=== PATIENT | female | born 2000 | race Caucasian/White ===

== ENCOUNTER 2019-02-26 11:10 | Emergency (ER) | payer BC ==
[2019-02-26 11:15] VITALS: BP 110/76; PULSE 81; TEMP 98.8; BMI 31.4
--- NOTE | 2019-02-26 11:47 | PDOC ---
History of Present Illness - General Chief Complaint: Pain, Acute Stated Complaint: ABD PAIN History Source: Patient Exam Limitations: No Limitations - History of Present Illness Initial Comments: 02/26/19 11:40 19 yo F with no past medical history presents to the emergency department with epigastric pain since yesterday. Per the patient, she never experienced this pain before and was gradual in onset. She states she had 1x vomiting episode yesterday with 1 streak of red blood bright red. She denies worsening or relieving of pain with food, but states that the longer she goes without eating the worse it becomes. Has not used OTC medications. Denies the following: hx of gallstones, cholecystectomy, hx of gastritis, dysuria, hematuria, hx of pancreatitis, trauma, chest pain, SOB, fevers, and back pain. LMP was this month. No vaginal discharge or bleeding. Allergies: Cefazolin Shx: None Social: Denies tobacco, alcohol, and substance abuse. Past History - Past Medical History Allergies/Adverse Reactions: Allergies Allergy/AdvReac Type Severity Reaction Status Date / Time cefazolin Allergy Verified 02/26/19 11:11 Home Medications: Ambulatory Orders Sulfamethoxazole/Trimethoprim [Bactrim Ds -] 1 tab PO BID #10 tablet 02/26/19 COPD: No CHF: No - Suicide/Smoking/Psychosocial Hx Smoking History: Never smoked Hx Alcohol Use: No Drug/Substance Use Hx: No Review of Systems - Review of Systems Able to Perform ROS?: Yes Is the patient limited Tanzanian proficient: No Constitutional: No: Chills, Diaphoresis, Fever, Weakness HEENTM: No: Blurred Vision, Recent change in vision, Ear Pain, Nose Pain, Throat Pain, Mouth Pain Respiratory: No: Cough, Shortness of Breath, Hemoptysis Cardiac (ROS): No: Chest Pain, Lightheadedness, Palpitations, Syncope, Chest Tightness ABD/GI: Yes: Vomiting. No: Constipated, Diarrhea, Difficulty Swallowing, Nausea , Poor Appetite, Poor Fluid Intake, Rectal Bleeding, Tarry Stools : Yes: Frequency. No: Burning, Dysuria, Hematuria, Incontinence, Pain, Urgency Musculoskeletal: No: Back Pain, Joint Pain, Neck Pain Integumentary: No: Bruising, Erythema, Rash Neurological: No: Headache, Numbness, Tingling, Tremors, Dizziness Psychiatric: No: Change in Appetite Endocrine: No: Unexplained Weight Gain Hematologic/Lymphatic: No: Anemia *Physical Exam - Vital Signs Last Vital Signs Temp Pulse Resp BP Pulse Ox 98.8 F 81 16 110/76 100 02/26/19 11:11 02/26/19 11:11 02/26/19 11:11 02/26/19 11:11 02/26/19 11:11 - Physical Exam General Appearance: Yes: Nourished, Appropriately Dressed. No: Apparent Distress, Intoxicated HEENT: positive: EOMI, AMELIE, Normal Voice, Symmetrical, Pharynx Normal, Hearing Grossly Normal. negative: Pale Conjunctivae, Scleral Icterus (R), Scleral Icterus (L), Muffled/Hoarse voice, Pharyngeal Erythema, Tonsillar Exudate, Tonsillar Erythema, Nasal Congestion, Rhinorrhea, Sinus Tenderness, Excessive drooling Neck: positive: Trachea midline, Supple. negative: Tender, Lymphadenopathy (R) , Lymphadenopathy (L), Tender lateral, Tender midline Respiratory/Chest: positive: Lungs Clear, Normal Breath Sounds. negative: Chest Tender, Respiratory Distress, Accessory Muscle Use Cardiovascular: positive: Regular Rhythm, Regular Rate, S1, S2. negative: Systolic Murmur Gastrointestinal/Abdominal: positive: Normal Bowel Sounds, Tender (epigastric), Flat, Soft Lymphatic: negative: Adenopathy Musculoskeletal: positive: Normal Inspection. negative: CVA Tenderness, Vertebral Tenderness Extremity: positive: Normal Capillary Refill, Normal Inspection, Normal Range of Motion. negative: Tender, Swelling, Calf Tenderness Integumentary: positive: Normal Color, Dry, Warm Neurologic: positive: collar stitcher II-XII NML intact, Fully Oriented, Alert, Normal Mood/ Affect, Normal Response, Motor Strength 5/5 ED Treatment Course - LABORATORY CBC & Chemistry Diagram: 02/26/19 12:16 02/26/19 12:18 - ADDITIONAL ORDERS Additional order review: Laboratory Results 02/26/19 11:19 Urine Color Yellow Urine Appearance Clear Urine pH 5.0 Urine Protein Negative Urine Glucose (UA) Negative Urine Ketones Negative Urine Blood Negative Urine Nitrite Negative Urine Bilirubin Negative Urine Urobilinogen 0.2 Ur Leukocyte Esterase Trace H Medical Decision Making - Medical Decision Making 19 yo F with no past medical history presents to the emergency department with epigastric pain since yesterday. Per the patient, she never experienced this pain before and was gradual in onset. Initial vitals: Initial Vital Signs Temp Pulse Resp BP Pulse Ox 98.8 F 81 16 110/76 100 02/26/19 11:11 02/26/19 11:11 02/26/19 11:11 02/26/19 11:11 02/26/19 11:11 Work up: ddx: pancreatitis vs cholelithiasis vs cholecystitis vs gastritis vs gastroenteritis vs msk strain vs ectopic vs duodenal/gastric ulcer vs hepatitis Laboratory Tests 02/26/19 02/26/19 02/26/19 11:19 12:16 12:18 WBC 7.2 RBC 4.34 Hgb 13.0 Hct 39.7 MCV 91.3 MCH 30.0 MCHC 32.8 RDW 13.0 Plt Count 287 MPV 9.8 Absolute Neuts (auto) 5.4 Neutrophils % 75.2 Lymphocytes % 18.8 Monocytes % 4.1 Eosinophils % 0.7 Basophils % 1.2 Sodium 135 L Potassium 4.0 Chloride 104 Carbon Dioxide 23 Anion Gap 8 BUN 12 Creatinine 0.6 Est GFR (CKD-EPI)AfAm 152.08 Est GFR (CKD-EPI)NonAf 131.21 Random Glucose 101 Calcium 8.9 Total Bilirubin 0.4 AST 17 ALT 15 Alkaline Phosphatase 82 Total Protein 7.1 Albumin 3.7 Lipase 99 Urine Color Yellow Urine Appearance Clear Urine pH 5.0 Urine Protein Negative Urine Glucose (UA) Negative Urine Ketones Negative Urine Blood Negative Urine Nitrite Negative Urine Bilirubin Negative Urine Urobilinogen 0.2 Ur Leukocyte Esterase Trace H Urine RBC 0-2 Urine WBC 5-10 Ur Transition Epith Cell Few Urine Bacteria Moderate Urine HCG, Qual Negative labs within normal limits save for UA which showed signs of UTI. The patient was given fluids, tylenol, GI cocktail, and bactrim. she was given outpatient bactrim prescription for UTI and follow up with PMD. patient had significant improvement in symptoms. Dispo: Discharge 02/27/19 09:26 *DC/Admit/Observation/Transfer Diagnosis at time of Disposition: UTI (urinary tract infection) Qualifiers: Urinary tract infection type: site unspecified Hematuria presence: without hematuria Qualified Code(s): N39.0 - Urinary tract infection, site not specified - Discharge Dispostion Disposition: HOME Condition at time of disposition: Stable Decision to Admit order: No - Prescriptions Prescriptions: Sulfamethoxazole/Trimethoprim [Bactrim Ds -] 1 tab PO BID #10 tablet - Referrals Referrals: [facility] [place] [Provider Group] - Patient Instructions Printed Discharge Instructions: DI for Urinary Tract Infection (UTI) Additional Instructions: you were evaluated in the emergency department. Your urine shows a urinary tract infection. Please take the antibiotics as prescribed. Please follow up with the primary medical doctor within 1 week after discharge for follow up care and management. Please return to the emergency department if you have worsening symptoms or new concerning symptoms such as fever, chills, ascending pain, and pain with urination. Thank you. - Post Discharge Activity Forms/Work/School Notes: Back to Work
[2019-02-26 11:48] LABS: HCG,QUALITATIVE URINE Negative
--- NOTE | 2019-02-26 11:56 | PDOC ---
Attending Attestation - Resident Resident Name: Hipolito Sandoval - ED Attending Attestation I have performed the following: I have examined & evaluated the patient, The case was reviewed & discussed with the resident, I agree w/resident's findings & plan, Exceptions are as noted - HPI HPI: 02/26/19 11:54 19y F presents with epigastric pain that is described as pressure 5/10, it is constant, pressure like, onset yesterday and has been persistent but was more severe last night. There was an episode of vomiting that was clear but blood tingued yesterday, no current nausea, also one episode of loose stool yesterday. no associated fever/chills, melena, bpr, hematemesis, recent travel or known sick contacts. No prior simiarl episodes of pain in the past. no chagne of pain with food intake. No prior abd surgeries Denies etoh abuse - Physicial Exam PE: 02/26/19 12:38 GENERAL: The patient is awake, alert, and fully oriented, Nontoxic - in no acute distress. HEAD: Normocephalic, atraumatic. EYES: extraocular movements intact, sclera anicteric, conjunctiva clear. ENT: Normal voice, Moist mucous membranes. NECK: Normal range of motion, supple LUNGS: Breath sounds equal, clear to auscultation bilaterally. No wheezes, no rhonchi, no rales. HEART: Regular rate and rhythm, normal S1 and S2 without murmur, rub or gallop. ABDOMEN: Soft, nontender, normoactive bowel sounds. No guarding, no rebound. . No CVA tenderness EXTREMITIES: Normal range of motion, no edema. No clubbing or cyanosis. No cords, erythema, or tenderness. NEUROLOGICAL: No facial assymetry, Normal speech, PSYCH: Normal mood, normal affect. SKIN: Warm, Dry, normal turgor, - Medical Decision Making 02/26/19 12:38 Differential for patient's symptoms includes gastroenteritis, gastritis, consider possible pancreatitis We'll check labs and treat symptmoatically will reassess 16:35 lbas reviewed pt feeling improved will dc with pmd fu return precuations were discussed
[2019-02-26 11:59] LABS: EPITHELIAL CELLS FEW /hpf
[2019-02-26] MEDS ORDERED: ACETAMINOPHEN 1000 MG/100 ML VIAL (NON FORMULARY) IVPB ONE (12:16)
[2019-02-26] MEDS ORDERED: SODIUM CHLORIDE 1,000 ML IV STA (12:16)
[2019-02-26] MEDS ORDERED: ACETAMINOPHEN INJECTION 100 ML IVPB ONE (12:19)
[2019-02-26 12:47] LABS: BASO % 1.2 % (0-2.0); EOS % 0.7 % (0-4.5); HEMATOCRIT 39.7 % (32.4-45.2); LYMPH % 18.8 % (8-40); MCHC 32.8 g/dl (32.0-36.0); MEAN CELL VOLUME 91.3 fl (80-96); MEAN PLT VOLUME 9.8 fl (7.5-11.1); MONO % 4.1 % (3.8-10.2); NEUT % 75.2 % (42.8-82.8); PLATELET COUNT 287 K/MM3 (134-434); RBC 4.34 M/mm3 (3.60-5.2); WHITE BLOOD COUNT 7.2 K/mm3 (4.0-10.8)
[2019-02-26 12:55] LABS: ALBUMIN 3.7 g/dl (3.4-5.0); BILIRUBIN,TOTAL 0.4 mg/dl (0.2-1); CALCIUM 8.9 mg/dl (8.5-10); CREATININE 0.6 mg/dl (0.55-1.3); TOT PROT 7.1 g/dl (6.4-8.2)
[2019-02-26] MEDS ORDERED: FAMOTIDINE 20 MG/50 ML IVPB 20 MG/50 ML MG IVPB ONE ×2 (13:24→13:25)
[2019-02-26] MEDS ORDERED: MAG HYDROX/AL HYDROX/SIMETH 30 ML UNIT-DOSE CUP PO ONE (13:24)
[2019-02-26] MEDS ORDERED: MAG HYDROX/AL HYDROX/SIMETH 30 ML UNIT-DOSE CUP ONE (13:25)
[2019-02-26] MEDS ORDERED: SULFAMETHOXAZOLE/TRIMETHOPRIM 800MG/160MG D.S. TABLET PO ONE (14:09)
[2019-02-26] MEDS ORDERED: SULFAMETHOXAZOLE/TRIMETHOPRIM 800MG/160MG D.S. TABLET ONE (14:11)
== END 2019-02-26 14:18 | disposition home or self-care (01) ==
LOC: FER 11:10
PROC: 3E033NZ Introduction of Analgesics, Hypnotics, Sedatives into Peripheral Vein, Percutaneous Approach (ICD-10-PCS; principal; 2019-02-26)
PROC: 3E0337Z Introduction of Electrolytic and Water Balance Substance into Peripheral Vein, Percutaneous Approach (ICD-10-PCS; 2019-02-26)
PROC: 3E033GC Introduction of Other Therapeutic Substance into Peripheral Vein, Percutaneous Approach (ICD-10-PCS; 2019-02-26)
DX: N39.0 Urinary tract infection, site not specified (principal)
CPT/HCPCS: 36415; 80053; 81003; 81015; 83690; 84703; 85025; 87086; 99283-25; J0131; J7030